=== PATIENT | male | born 1995 | race African-American/Black ===

== ENCOUNTER 2019-10-21 20:04 | Emergency (ER) | payer OTHER ==
[~2019-10-21] VITALS: Ht 182.9 cm; Wt 72.7 kg
[2019-10-21] MEDS ORDERED: LIDOCAINE 1% 10 ML VIAL INJ ONE (20:45)
[2019-10-21] MEDS ORDERED: PROPOFOL 1% 20 ML VIAL IVP ONE ×2 (21:15→22:15)
[2019-10-21] MEDS: KETAMINE HCL 50 MG/ML 10 ML VIAL IVP ONE ×2 (22:00→22:16)
[2019-10-21] MEDS ORDERED: MORPHINE SULFATE 4 MG/ML SYRINGE IVP ONE (22:15)
[2019-10-22 02:11] VITALS: BP 115/66
== END 2019-10-22 02:28 | disposition home or self-care (01) ==
LOC: EMS 20:05
DX: M24.412 Recurrent dislocation, left shoulder (principal)
CPT/HCPCS: 23650; 73030; 96374; 99152; 99285; J2270; J2704; J3490